=== PATIENT | male | born 1950 | race Caucasian/White ===

== ENCOUNTER → 2017-07-23 | Outpatient (CLI) | payer MEDICARE | LOC: LAB SHORT 08:40 → LAB 08:40 | DX: L02.212 Cutaneous abscess of back [any part, except buttock and flank] (principal) | CPT/HCPCS: 87070; 87075; 87077; 87186; 87205 ==

== ENCOUNTER 2020-07-15 09:45 | Day surgery (SDC) | payer MEDICARE, BC ==
[~2020-07-15] VITALS: Ht 182.9 cm; Wt 134.5 kg
[2020-07-15] MEDS ORDERED: LISI20 PO (10:27)
[2020-07-15] MEDS ORDERED: GLUCOPHAGE1000 M5 PO (10:27)
[2020-07-15] MEDS ORDERED: ATORVASTATIN CA20 MG PO (10:27)
[2020-07-15] MEDS ORDERED: MULVITA PO (10:28)
[2020-07-15] MEDS ORDERED: Aspir 8181 MG PO (10:28)
--- NOTE | 2020-07-15 10:31 | NUR ---
07/15/20 1031 Kiesha Casey 1016 TETRACAINE DROP PLACED IN RT EYE PER DR ORDER. 1021 PLEDGET PLACED IN RT EYE PER DR ORDER.
== END 2020-07-15 11:49 | disposition home or self-care (01) ==
LOC: ORSCSDS 09:45
PROVIDERS: Ophthalmology
PROC: 08RJ3JZ Replacement of Right Lens with Synthetic Substitute, Percutaneous Approach (ICD-10-PCS; principal; 2020-07-15 11:15)
DX: H25.11 Age-related nuclear cataract, right eye (principal); I10 Essential (primary) hypertension; E11.9 Type 2 diabetes mellitus without complications; Z79.84 Long term (current) use of oral hypoglycemic drugs; Z79.899 Other long term (current) drug therapy; E66.01 Morbid (severe) obesity due to excess calories; Z68.41 Body mass index [BMI] 40.0-44.9, adult
CPT/HCPCS: 82947; A9270; J2001; J2250; J3010; J3301; J7040; V2632

== ENCOUNTER 2020-07-29 09:42 | Day surgery (SDC) | payer MEDICARE, BC ==
[~2020-07-29] VITALS: Ht 182.9 cm; Wt 134.3 kg
[~2020-07-29 09:42] MED LIST: ATORVASTATIN CA20 MG PO; Aspir 8181 MG PO; GLUCOPHAGE1000 M5 PO; LISI20 PO; MULVITA PO
--- NOTE | 2020-07-29 09:43 | NUR ---
07/29/20 0943 Marianna Noonan, RN CHARTING PREOP INFORMATION
== END 2020-07-29 11:19 | disposition home or self-care (01) ==
LOC: ORSCSDS 09:42
PROVIDERS: Ophthalmology
PROC: 08RK3JZ Replacement of Left Lens with Synthetic Substitute, Percutaneous Approach (ICD-10-PCS; principal; 2020-07-29 11:15)
DX: H25.12 Age-related nuclear cataract, left eye (principal); I10 Essential (primary) hypertension; E11.9 Type 2 diabetes mellitus without complications; Z79.84 Long term (current) use of oral hypoglycemic drugs; Z79.899 Other long term (current) drug therapy; E66.01 Morbid (severe) obesity due to excess calories; Z68.41 Body mass index [BMI] 40.0-44.9, adult
CPT/HCPCS: 82947; J2001; J2250; J3010; J3301; J7040; V2632

== ENCOUNTER → 2022-03-24 | Outpatient (CLI) | payer MEDICARE, BC | END | disposition home or self-care (01) | LOC: LAB SHORT 10:15 | DX: R30.0 Dysuria (principal) | CPT/HCPCS: 87077; 87086; 87186 ==

== ENCOUNTER → 2022-05-03 | Outpatient (CLI) | payer MEDICARE, BC | END | disposition home or self-care (01) | LOC: LAB SHORT 09:00 → LAB 09:00 | DX: R30.9 Painful micturition, unspecified (principal) | CPT/HCPCS: 87077; 87086; 87186 ==

== ENCOUNTER 2024-09-04 07:15 | Day surgery (SDC) | payer MEDICARE, BC ==
[~2024-09-04] VITALS: Ht 180.3 cm; Wt 136.0 kg
[~2024-09-04 07:15] MED LIST changes: +ATOR20 PO; +LEVOTHYROXINE25 MC9 PO; -LISI20 PO; +MOUNJARO2.5 MG/0.5 SC; +ZESTRIL40 M1 PO
[2024-09-04 07:39] VITALS: BP 152/78
--- NOTE | 2024-09-04 08:09 | NUR ---
History, Chart, Medications and Allergies reviewed before start of procedure. Patient up to Ambulate independently. Gait steady. Pre-Op teaching done. Pt verbalizes understanding. Patient confirms NPO status and agrees with scheduled surgery. Patient states colon prep results light yellow. Patient States Post-Procedure ride home has been arranged.
--- NOTE | 2024-09-04 09:03 | NUR ---
09/04/24 0903 Siena Delaney History, Chart, Medications and Allergies reviewed before start of procedure. MONITOR INTACT WITH CONTINUOUS PULSE OXIMETRY, CONTINUOUS END TITAL CO2, 3-LEAD EKG AND INTERMITTENT BLOOD PRESSURE. O2 VIA POM INTACT THROUGHOUT SEDATION/PROCEDURE. DR. CANELA PROVIDING MAC, SEE ANESTHESIA RECORD.
[2024-09-04 09:38] VITALS: BP 120/66
[2024-09-04 09:55] VITALS: BP 126/68
== END 2024-09-04 23:00 | disposition home or self-care (01) ==
LOC: ORSCMMR 07:15 → ORD 09:00 → ORSCMMR 09:00
PROVIDERS: Internal Medicine Gastroenterology
PROC: 0DJD8ZZ Inspection of Lower Intestinal Tract, Via Natural or Artificial Opening Endoscopic (ICD-10-PCS; principal; 2024-09-04 09:00)
DX: Z12.11 Encounter for screening for malignant neoplasm of colon (principal); K64.8 Other hemorrhoids; I10 Essential (primary) hypertension; E03.9 Hypothyroidism, unspecified; E78.00 Pure hypercholesterolemia, unspecified; E11.9 Type 2 diabetes mellitus without complications; E66.01 Morbid (severe) obesity due to excess calories; Z68.41 Body mass index [BMI] 40.0-44.9, adult; Z79.85 Long-term (current) use of injectable non-insulin antidiabetic drugs; Z79.899 Other long term (current) drug therapy
CPT/HCPCS: 82947; J2704; J7120

== ENCOUNTER 2024-09-12 10:04 | Emergency (ER) | payer MEDICARE, BC ==
[~2024-09-12] VITALS: Ht 198.1 cm; Wt 135.6 kg
[2024-09-12 10:47] LABS: Hematocrit 40.3 % (37.0-53.0); Hemoglobin 13.4 g/dL (13.5-17.5); Mean Corpuscular HGB Conc 33.3 g/dL (31.5-36.5); Mean Corpuscular Volume 96 fL (80-100); NRBC ABSOLUTE 0.00 K/mm3 (0.00-0.02); NRBC Auto 0.0 /100 WBC (0.0-0.2); Platelet Count 305 K/mm3 (150-400); RDW Coefficient Variation 13.7 % (11.7-14.2); RDW Standard Deviation 48.1 fL (35.1-46.3)
[2024-09-12 11:12] LABS: Alanine Aminotransfer (ALT/SGP 17.0 U/L (12-78); Albumin, Blood 3.3 g/dL (3.4-5.0); Albumin/Globulin Ratio 0.8 (0.8-1.8); Anion Gap 10.0 mmol/L (3-11); Aspartate Aminotrans (AST/SGOT 17.0 U/L (12-37); Bilirubin, Total 0.6 mg/dL (0.1-1.0); Blood Urea Nitrogen 20.0 mg/dL (8-24); CO2, Blood 22.0 mmol/L (21-32); Calcium, Blood 8.4 mg/dL (8.5-10.1); Chloride, Blood 106.0 mmol/L (98-108); Creatinine, Blood 1.12 mg/dL (0.60-1.20); Globulin, Blood 4.1 g/dL (2.2-4.0); Glucose, Blood 131.0 mg/dL (70-99); Potassium, Blood 4.2 mmol/L (3.5-5.5); Sodium, Blood 134.0 mmol/L (136-145); Total Protein, Blood 7.4 g/dL (6.4-8.2)
[2024-09-12 11:49] LABS: BAND PERCENT MAN 8 % (0-8); BASOPHILS ABSOLUTE MAN 0.00 K/mm3 (0.00-0.23); BASOPHILS PERCENT MAN 0 % (0-2); EOSINOPHILS ABSOLUTE MAN 0.00 K/mm3 (0.00-0.68); EOSINOPHILS PERCENT MAN 0 % (0-6); LYMPHOCYTES ABSOLUTE MAN 1.80 K/mm3 (0.84-5.20); LYMPHOCYTES PERCENT MAN 9 % (21-46); MONOCYTES ABSOLUTE MAN 1.00 K/mm3 (0.16-1.47); MONOCYTES PERCENT MAN 5 % (4-13); NEUTROPHILS ABSOLUTE MAN 17.27 K/mm3 (1.96-9.15); SEG NEUTROPHILS PERCENT MAN 78 % (41-73)
[2024-09-12 12:00] VITALS: BP 130/64
== END 2024-09-12 13:02 | disposition home or self-care (01) ==
LOC: ER 10:04
PROVIDERS: Emergency Medicine
DX: R55 Syncope and collapse (principal); Z79.899 Other long term (current) drug therapy; Z88.0 Allergy status to penicillin
CPT/HCPCS: 80053; 84484; 85025; 93005; 93010; 99284-25